=== PATIENT | female | born 1945 | race Caucasian/White ===

== ENCOUNTER → 2018-12-15 12:34 | Outpatient (CLI) | payer OTHER, SELFPAY ==
--- NOTE | 2018-12-15 | DI.MRI.S_ITS ---
PROCEDURE: MR CERVICAL SPINE WO/W CON INDICATIONS: Spinal stenosis. Multiple sclerosis. INNER SPINE (CANAL) TECHNIQUE: Noncontrast sagittal T1 spin echo and T2 fast spin echo, sagittal STIR, sagittal PD fast spin echo, foraminal oblique sagittal T2 fast spin echo, axial gradient echo or T2 fast spin echo through the cervical spine. After the administration of contrast, sagittal and axial T1 spin echo with fat saturation through the cervical spine. COMPARISON: [facility], MR, MR LUMBAR SPINE WO/W CON, 12/15/2018, 12:43. [facility], MR, MR THORACIC SPINE WO/W CON, 12/15/2018, 12:43. [facility], MR, C-SPINE W&WO CONTRAST, 12/22/2013, 13:29. FINDINGS: Image quality: Diagnostic, with note made of motion artifact. Alignment and curvature: There is normal bony alignment. Marrow: Marrow demonstrates normal overall signal. Spinal cord: Visualized spinal cord is normal in size, without white matter lesions. No suspicious intramedullary enhancement. No cerebellar tonsillar herniation. Paraspinous soft tissues: No paravertebral masses or suspicious enhancement. C2-C3: No significant abnormality is seen. C3-C4: The disc height is well-preserved. Loss of disc signal is seen at this level. A mild degree of generalized disc osteophyte complex is seen. There is moderate to prominent right-sided and moderate left-sided facet hypertrophy seen. There is mild to moderate right-sided and no significant left-sided neural foraminal narrowing seen. No significant central canal narrowing is seen. When comparison is made with the prior examination, these findings are similar. C4-C5: Mild to moderate loss of disc height and disc signal are seen. Moderate generalized disc osteophyte complex is seen. Moderate facet joint hypertrophy is seen. Moderate facet joint hypertrophy is seen. Moderate bilateral neural foraminal narrowing is seen. Moderate central canal narrowing is seen, with mass effect upon the ventral spinal cord. No significant change from the prior. C5-C6: Moderate loss of disc height is seen. Loss of disc signal is seen. Moderate disc osteophyte complex is seen, with a central disc osteophyte protrusion. Moderate to severe bilateral neural foraminal narrowing is seen. Moderate central canal narrowing is seen, with mass effect upon the ventral spinal cord. C6-C7: Moderate loss of disc height is seen. Loss of disc signal is seen. Moderate generalized disc osteophyte complex is seen. There is a superimposed central disc osteophyte protrusion seen. There is moderate to severe left-sided and moderate right-sided neural foraminal narrowing seen. Moderate central canal narrowing is seen, with associated mass effect upon the ventral spinal cord. When comparison is made with the prior examination, these findings are similar. C7-T1: Mild loss of disc height is seen. Loss of disc signal is seen. A mild degree of generalized disc osteophyte complex is seen. No significant neural foraminal or central canal narrowing can be seen. When comparison is made with the prior examination, these findings are similar. IMPRESSION: No suspicious white matter lesions are seen to suggest multiple sclerosis. No abnormal enhancement can be seen. Multiple levels of degenerative change are seen, which are similar to 2014. Dictated by: Otis Rose M.D. on 12/15/2018 at 14:43 Approved by: Otis Rose M.D. on 12/15/2018 at 14:51
--- NOTE | 2018-12-15 | DI.MRI.S_ITS ---
PROCEDURE: MR LUMBAR SPINE WO/W CON INDICATIONS: Spinal stenosis. Multiple sclerosis. INNER SPINE (CANAL) TECHNIQUE: Noncontrast sagittal T1 spin echo and T2 fast spin echo, sagittal STIR, axial T1 and T2 fast spin echo through the lumbar spine. In cases with scoliosis, additional coronal T2 fast spin echo may be performed. After the administration of contrast, sagittal and axial T1 spin echo with fat saturation through the lumbar spine. COMPARISON: [facility], MR, L-SPINE W&WO CONTRAST, 12/22/2013, 14:10. [facility], MR, MR THORACIC SPINE WO/W CON, 12/15/2018, 12:43. [facility], MR, MR CERVICAL SPINE WO/W CON, 12/15/2018, 12:43. FINDINGS: Image quality: Excellent. Alignment and curvature: Mild dextroconvex scoliotic curvature is seen. Marrow: Marrow is of normal overall signal. No acute vertebral body compression fractures. No suspicious marrow enhancement. Spinal cord: Conus medullaris terminates at the L1 level. Visualized spinal cord demonstrates normal signal, without suspicious enhancement. Paraspinous soft tissues: No paravertebral masses or abnormal enhancement. T12-L1: Normal appearance. L1-L2: Moderate to severe loss of disc height and disc signal are seen. Reactive marrow endplate changes are seen, which demonstrate mixed T1 weighted and T2-weighted signal, and are attributed to a combination of edema and fatty metaplasia (Modic type I and Modic type II changes). Mild endplate enhancement is seen, which is attributed to degenerative change. Moderate generalized disc bulge is seen. There is moderate left-sided and no right-sided neural foraminal narrowing seen. No significant central canal narrowing is seen. Compared to 2013, these degenerative changes have progressed. L2-L3: Mild to moderate loss of disc height and disc signal are seen. Zndy-dk-rvioustx disc bulge is seen. Yjey-cj-bwjngbri facet hypertrophy is seen. There is moderate left-sided and no right-sided neural foraminal narrowing seen. Mild central canal narrowing is seen. These imaging findings have progressed compared to the prior study. L3-L4: Moderate to severe loss of disc height is seen on the left side. Reactive marrow endplate changes are seen which are hypointense on T1-weighted imaging and hyperintense on T2 weighted imaging, which is most consistent with edema (Modic type I changes). Endplate enhancement is also seen, which is attributed to the degenerative changes. Moderate generalized disc bulge is seen. Gnwt-py-fwolpwjg facet hypertrophy is seen. There is moderate left-sided and mild right-sided neural foraminal narrowing seen. Moderate central canal narrowing is seen. These imaging findings have progressed compared to the prior study. L4-L5: Moderate to severe loss of disc height and disc signal are seen. Moderate generalized disc bulge is seen. Pbjm-ih-rdcjrjlj facet hypertrophy is seen. There is moderate left-sided and no right-sided neural foraminal narrowing seen. Mild central canal narrowing is seen. When comparison is made with the prior examination, these findings are similar. L5-S1: Mild to moderate disc bulge is seen. Edfm-cb-pbpvfkaf facet hypertrophy is seen. There is mild to moderate right-sided and no left-sided neural foraminal narrowing seen. No significant central canal narrowing is seen. When comparison is made with the prior examination, these findings are similar. Incidental note is made of a presumed perineural cyst (Tarlov's cyst) at the S2 level. IMPRESSION: Lumbar spine dextroconvex scoliosis and multiple levels of degenerative change are seen. The degenerative changes are overall progressed compared to 2014. No abnormal enhancement can be seen. Dictated by: Otis Rose M.D. on 12/15/2018 at 13:56 Approved by: Otis Rose M.D. on 12/15/2018 at 14:03
--- NOTE | 2018-12-15 14:19 | DI.MRI.S_ITS ---
PROCEDURE: MR THORACIC SPINE WO/W CON INDICATIONS: INNER SPINE (CANAL) TECHNIQUE: Noncontrast sagittal T1 spin echo and T2 fast spin echo, sagittal STIR, axial T1 and T2 fast spin echo through the thoracic spine. After the administration of contrast, axial and sagittal T1 spin echo with fat saturation through the thoracic spine. COMPARISON: [facility], MR, T-SPINE W&WO CONTRAST, 12/22/2013, 13:51. FINDINGS: Image quality: Excellent. Alignment and curvature: Levoconvex scoliotic curvature of the thoracolumbar spine is again noted. Marrow: Marrow is of normal overall signal. Schmorl's nodes are noted along the inferior endplate of L1 and superior endplate of L2 with mild associated reactive change. Reactive endplate changes are noted at L2-3 and L3-4 as well as minimal changes at L5 6 and L6 7. No acute vertebral body compression fractures. There is trace retrolisthesis of L1 on L2. Spinal cord: Visualized spinal cord is of normal signal and size, without abnormal enhancement. Paraspinous soft tissues: No paravertebral masses or abnormal enhancement. Miscellaneous: Central canal and foramina appear widely patent at all scanned levels of the thoracic spine. Spinal stenosis secondary to disc bulge as well as facet/ligamentum flavum arthropathy is present at L2-3. Multilevel disc desiccation is present. Minimal disc bulge is present at T6-7, T8-9, T9-10, T10-11, mild bulge including extension into the left lateral recess and foramina at L2-3. IMPRESSION: 1. Multilevel disc desiccation and disc bulges as above. Dictated by: Amelie Mayen M.D. on 12/15/2018 at 15:12 Approved by: Amelie Mayen M.D. on 12/15/2018 at 15:53
== END ==
PROVIDERS: Family Provider Family Medicine; PCP Family Medicine; Visit Provider Family Medicine
DX: M48.02 Spinal stenosis, cervical region (principal); M48.061 Spinal stenosis, lumbar region without neurogenic claudication; G35 Multiple sclerosis; M41.86 Other forms of scoliosis, lumbar region; M47.816 Spondylosis without myelopathy or radiculopathy, lumbar region; M47.817 Spondylosis without myelopathy or radiculopathy, lumbosacral region; M47.812 Spondylosis without myelopathy or radiculopathy, cervical region; M51.24 Other intervertebral disc displacement, thoracic region
CPT/HCPCS: 72156; 72157; 72158; A9579

== ENCOUNTER → 2021-01-09 08:28 | Outpatient (CLI) | payer MEDICARE, OTHER, SELFPAY ==
[2021-01-09 20:52] LABS: Add Manual Diff / Slide Review NO; Basophils Absolute Auto 0 /uL (0-100); Basophils Percent Auto 0.8 % (0-2); Eosinophils Absolute Auto 100 /uL (0-450); Eosinophils Percent Auto 2.2 % (2-4); Hematocrit 40.7 % (36-46); Hemoglobin 13.5 g/dL (12.0-16.0); Lymphocytes Absolute Auto 1400 /uL (1100-4500); Lymphocytes Percent Auto 25.4 % (25-40); Mean Corpuscular HGB Conc 33.1 % (30-36); Mean Corpuscular Volume 84.5 fL (80-100); Monocytes Absolute Auto 400 /uL (0-900); Monocytes Percent Auto 7.7 % (3-14); Neutrophils Absolute Auto 3600 /uL (1500-7000); Neutrophils Percent Auto 63.9 % (50-75); Platelet Count 238 X10^3/uL (150-400); Red Blood Cell Count 4.82 X10^6/uL (4.0-5.2); Red Cell Distribution Width 13.9 % (11.6-14.8); White Blood Cell Count 5.6 X10^3/uL (4.5-11.0)
[2021-01-09 21:14] LABS: Alanine Aminotransferase 20 IU/L (<35); Albumin 4.1 g/dL (3.5-5.0); Albumin Globulin Ratio 1.8 (1.0-2.8); Alkaline Phosphatase 74 U/L (38-126); Aspartate Aminotransferase 34 IU/L (14-36); Bilirubin Total 0.5 mg/dL (0.2-1.3); Blood Urea Nitrogen 12 mg/dL (7-17); Calcium 9.5 mg/dL (8.4-10.2); Carbon Dioxide 29 mmol/L (22-32); Chloride 106 mmol/L (98-107); Cholesterol 204 mg/dL (140-199); Estimated Glomerular Filt Rate > 60.0 mL/min (>60); Globulin 2.3 g/dL (1.7-4.1); Glucose 92 mg/dL (80-110); HDL Cholesterol 56 mg/dL (40-60); HEMOLYSIS < 15 (0-50); LDL Cholesterol Calculated 134 mg/dL (<100); Potassium 4.1 mmol/L (3.4-5.1); Sodium 141 mmol/L (137-145); Total Protein 6.4 g/dL (6.3-8.2); Triglycerides 70 mg/dL (35-150)
[2021-01-09 21:21] LABS: Vitamin D 25 Hydroxy (D3) 67.8 ng/mL (30.0-100.0)
[2021-01-09 21:46] LABS: TSH w/ Reflex to FT4 1.51 uIU/mL (0.47-4.68)
== END ==
PROVIDERS: Family Provider Family Medicine; PCP Family Medicine; Referring Provider Family Medicine; Visit Provider Family Medicine
DX: E03.9 Hypothyroidism, unspecified (principal); G35 Multiple sclerosis; E78.5 Hyperlipidemia, unspecified; E55.9 Vitamin D deficiency, unspecified
CPT/HCPCS: 80053; 80061; 82306; 84443; 85025

== ENCOUNTER → 2021-01-30 12:00 | Outpatient (CLI) | payer MEDICARE, OTHER, SELFPAY | PROVIDERS: Family Provider Family Medicine; PCP Family Medicine; Referring Provider Family Medicine; Visit Provider Family Medicine | DX: E88.9 Metabolic disorder, unspecified; M90.80 Osteopathy in diseases classified elsewhere, unspecified site; M85.80 Other specified disorders of bone density and structure, unspecified site; Z78.0 Asymptomatic menopausal state | CPT/HCPCS: 77080 ==

== ENCOUNTER → 2021-05-30 08:33 | Outpatient (CLI) | payer MEDICARE, OTHER, SELFPAY ==
[2021-05-30 21:02] LABS: Cholesterol 164 mg/dL (140-199); HDL Cholesterol 54 mg/dL (40-60); LDL Cholesterol Calculated 95 mg/dL (<100); Triglycerides 75 mg/dL (35-150)
[2021-05-30 21:21] LABS: Vitamin D 25 Hydroxy (D3) 56.6 ng/mL (30.0-100.0)
== END ==
PROVIDERS: Family Provider Family Medicine; PCP Family Medicine; Visit Provider Family Medicine
DX: E03.9 Hypothyroidism, unspecified (principal); E78.5 Hyperlipidemia, unspecified; E55.9 Vitamin D deficiency, unspecified
CPT/HCPCS: 80061; 82306; 84443

== ENCOUNTER → 2021-12-10 08:46 | Outpatient (CLI) | payer MEDICARE, OTHER, SELFPAY ==
[2021-12-10 19:39] LABS: Vitamin D 25 Hydroxy (D3) 74.9 ng/mL (30.0-100.0)
[2021-12-10 19:50] LABS: BUN Creatinine Ratio 19.2 (6-22); Blood Urea Nitrogen 15 mg/dL (7-17); Calcium 9.5 mg/dL (8.4-10.2); Carbon Dioxide 31 mmol/L (22-32); Chloride 103 mmol/L (98-107); Cholesterol 186 mg/dL (140-199); Estimated Glomerular Filt Rate > 60 mL/min (>60); Glucose 91 mg/dL (80-110); HDL Cholesterol 61 mg/dL (40-60); HEMOLYSIS < 15 (0-50); LDL Cholesterol Calculated 101 mg/dL (<100); Potassium 4.3 mmol/L (3.4-5.1); Sodium 139 mmol/L (137-145); TSH w/ Reflex to FT4 1.98 uIU/mL (0.47-4.68); Triglycerides 122 mg/dL (35-150)
== END ==
PROVIDERS: Family Provider Family Medicine; PCP Family Medicine; Visit Provider Family Medicine
DX: E03.9 Hypothyroidism, unspecified (principal); M85.80 Other specified disorders of bone density and structure, unspecified site; E55.9 Vitamin D deficiency, unspecified; E78.2 Mixed hyperlipidemia; F41.8 Other specified anxiety disorders
CPT/HCPCS: 80048; 80061; 82306; 84443

== ENCOUNTER → 2023-01-01 08:50 | Outpatient (CLI) | payer MEDICARE, OTHER, SELFPAY ==
[2023-01-01 19:49] LABS: Add Manual Diff / Slide Review NO; Basophils Absolute Auto 100 /uL (0-100); Basophils Percent Auto 1.2 % (0-2); Eosinophils Absolute Auto 300 /uL (0-450); Eosinophils Percent Auto 5.5 % (2-4); Hemoglobin 13.6 g/dL (12.0-16.0); Lymphocytes Absolute Auto 1500 /uL (1100-4500); Lymphocytes Percent Auto 28.8 % (25-40); Mean Corpuscular HGB Conc 34.8 % (30-36); Mean Corpuscular Volume 83.2 fL (80-100); Monocytes Absolute Auto 400 /uL (0-900); Monocytes Percent Auto 8.2 % (3-14); Neutrophils Absolute Auto 3000 /uL (1500-7000); Neutrophils Percent Auto 56.3 % (50-75); Platelet Count 239 X10^3/uL (150-400); Red Blood Cell Count 4.69 X10^6/uL (4.0-5.2); Red Cell Distribution Width 13.4 % (11.6-14.8); White Blood Cell Count 5.3 X10^3/uL (4.5-11.0)
[2023-01-01 19:57] LABS: Alanine Aminotransferase 30 IU/L (<35); Albumin 4.1 g/dL (3.5-5.0); Albumin Globulin Ratio 1.6 (1.0-2.8); Alkaline Phosphatase 67 U/L (38-126); Aspartate Aminotransferase 65 IU/L (14-36); BUN Creatinine Ratio 17.3 (6-22); Bilirubin Total 0.6 mg/dL (0.2-1.3); Blood Urea Nitrogen 13 mg/dL (7-17); Calcium 8.9 mg/dL (8.4-10.2); Carbon Dioxide 31 mmol/L (22-32); Chloride 103 mmol/L (98-107); Cholesterol 189 mg/dL (140-199); Estimated Glomerular Filt Rate > 60 mL/min (>60); Globulin 2.6 g/dL (1.7-4.1); Glucose 92 mg/dL (80-110); HDL Cholesterol 59 mg/dL (40-60); HEMOLYSIS < 15 (0-50); LDL Cholesterol Calculated 116 mg/dL (<100); Potassium 4.1 mmol/L (3.4-5.1); Sodium 140 mmol/L (137-145); Total Protein 6.7 g/dL (6.3-8.2); Triglycerides 69 mg/dL (35-150)
[2023-01-01 20:31] LABS: TSH w/ Reflex to FT4 1.34 uIU/mL (0.47-4.68)
[2023-01-01 20:43] LABS: Vitamin B12 797 pg/mL (239-931)
[2023-01-02 21:07] LABS: x Labcorp Estim. Avg Glu (eAG) 114 mg/dL (.); x Labcorp Hemoglobin A1c 5.6 % (4.8-5.6)
== END ==
PROVIDERS: Family Provider Family Medicine; PCP Physician Assistant; Visit Provider Physician Assistant
DX: H93.8X9 Other specified disorders of ear, unspecified ear; G62.9 Polyneuropathy, unspecified; Z79.899 Other long term (current) drug therapy
CPT/HCPCS: 80053; 80061; 82607; 83036; 84443; 85025

== ENCOUNTER → 2023-03-10 09:09 | Outpatient (CLI) | payer MEDICARE, OTHER, SELFPAY ==
--- NOTE | 2023-03-10 09:10 | DI.US.S_ITS ---
PROCEDURE: US PERIPH VENOUS LOW EXTREM LT INDICATIONS: LEFT CALF/POSTERIOR KNEE PAIN/SWELLING. R/O DVT/ONTIVEROS CYST TECHNIQUE: Real-time imaging, as well as color and pulse Doppler interrogation, were performed of the lower extremity deep veins from the inguinal ligament to the popliteal fossa, with documentation of the visualized calf veins. COMPARISON: None. FINDINGS: The common femoral, femoral, popliteal, and the visualized calf veins are normally compressible, and free of intraluminal thrombus. Color and pulse Doppler demonstrate normal phasic intraluminal flow. There is normal augmentation response to distal compression maneuver. Cyst associated with the anterior lateral joint space measures 3.3 x 2.1 x 0.6 cm IMPRESSION: No evidence of deep venous thrombosis, left lower extremity. Soft tissue fluid associated with the joint, probable joint effusion Approved by: Lucas Mars M.D. on 03/10/2023 at 9:26
== END ==
PROVIDERS: Family Provider Family Medicine; PCP Physician Assistant; Referring Provider Family Medicine; Visit Provider Family Medicine
DX: M25.562 Pain in left knee (principal); M79.89 Other specified soft tissue disorders; M25.462 Effusion, left knee
CPT/HCPCS: 93971

== ENCOUNTER → 2023-06-30 10:41 | Outpatient (CLI) | payer MEDICARE, OTHER, SELFPAY ==
--- NOTE | 2023-06-30 10:43 | DI.MRI.S_ITS ---
PROCEDURE: MR LUMBAR SPINE WO CON INDICATIONS: lumbar radiculopathy TECHNIQUE: Noncontrast sagittal T1 spin echo and T2 fast echo, sagittal STIR, and T2 fast spin echo through the lumbar spine. In cases with scoliosis, additional coronal T2 fast spin echo may be performed. COMPARISON: [facility], MR, MR LUMBAR SPINE WO/W CON, 12/15/2018, 12:43. FINDINGS: Image quality: Excellent. Alignment and Curvature: Mild dextrocurvature centered at L2-L3. Trace retrolisthesis of L1 on L2, L2 on L3, and L3 on L4. Bone Marrow: Marrow is of normal overall signal. No acute vertebral body compression fractures. Spinal Cord: Conus medullaris terminates at the L1 level. Visualized cord demonstrates normal signal and size. Paraspinous Soft Tissues: No paravertebral masses. T12-L1: No canal stenosis or foraminal stenosis. L1-L2: No significant interval change. Severe chronic disc height loss. Posterior disc bulge. Facet and ligament hypertrophy. No significant canal stenosis or significant foraminal stenosis. There is a right foraminal disc bulge which is not impinge on the exiting right L1 nerve root. L2-L3: Slight interval progression. Mild disc bulge. Facet and ligament hypertrophy. Mild canal stenosis. No significant right foraminal narrowing. No significant right foraminal narrowing. Mild to moderate left foraminal narrowing. L3-L4: Severe chronic disc height loss. Disc bulge. Facet and ligament hypertrophy. Moderate canal stenosis is stable. No significant right foraminal narrowing. Mild progression of left foraminal narrowing, now moderate, with minimal flattening deformity on the exiting left L3 nerve root. L4-L5: Severe chronic disc height loss. Prominent bilateral facet hypertrophy. No significant canal stenosis. Mild bilateral foraminal stenosis. L5-S1: Disc bulge. Prominent facet hypertrophy. No canal stenosis. Moderate right foraminal stenosis with mild flattening deformity on the exiting right L5 nerve root. IMPRESSION: 1. There is underlying multilevel facet arthropathy. There is also mild dextrocurvature. 2. Slight interval progression at L2-L3. 3. Canal stenosis is mild at L2-L3 and moderate at L3-L4. 4. Multilevel foraminal narrowing as described above. Findings include moderate left foraminal narrowing at L3-L4 and moderate right foraminal narrowing at L5-S1. Dictated by: Daren Lyons M.D. on 06/30/2023 at 15:01 Approved by: Daren Lyons M.D. on 06/30/2023 at 15:29
--- NOTE | 2023-06-30 10:43 | DI.MRI.S_ITS ---
PROCEDURE: MR HEAD/BRAIN WO/W CON INDICATIONS: multiple sclerosis TECHNIQUE: Noncontrast axial T1 spin echo, axial T2 fast spin echo, sagittal and axial FLAIR, coronal T2 fast spin echo, axial gradient echo, axial diffusion and ADC through the brain. After the administration of contrast, axial and coronal and sagittal T1 spin echo with fat saturation through the brain. COMPARISON: [facility], MR, MR BRAIN WITH/WITHOUT CONTRAST, 10/15/2020, 10:44. [facility], MR, BRAIN W&WO CONTRAST, 12/22/2013, 13:04. [facility], MR, MR LUMBAR SPINE WO CON, 06/30/2023, 12:37. FINDINGS: Image quality: Excellent. CSF spaces: Basal cisterns are patent. No extra-axial fluid collections. Ventricles are normal in size and shape. Brain: Numerous foci of abnormal T2 weighted hyperintensity can be seen within the periventricular deep white matter. Several peripheral lesions are also seen. There is a broad area of peripheral T2 weighted hyperintensity seen involving the posterior aspect of the left frontal lobe superiorly, as on series 7, image 33, which appears stable compared to the prior examination. There is mild involvement of the corpus callosum. A few faintly seen lesions can be seen within the yong, left worse than right. No definite cerebellar lesions are seen. These lesions do not enhance. When compared to the 2020 examination, the burden of white matter lesions does not appear progressed. No midline shift. No intracranial bleeds or masses. No abnormal intracranial enhancement. There is age-appropriate brain parenchymal volume loss. The brainstem appears normal. Diffusion-weighted images demonstrate no acute ischemic insults. No chronic ischemic insults. Normal intravascular flow voids are present. Skull and face: Calvarial marrow is normal in signal. Orbits appear normal. Sinuses: Mild mucosal thickening can be seen within the sphenoid sinuses, with milder mucosal thickening seen elsewhere within the paranasal sinuses. No abnormal fluid is seen within the mastoid air cells. IMPRESSION: Stable white matter lesions are seen, which are consistent with the given clinical history of multiple sclerosis. No definite progression can be seen compared to the prior. No abnormal enhancement is seen. No findings of acute or subacute infarction can be seen. No prior territorial infarct can be seen. No prior territorial infarct can be seen. Dictated by: Otis Rose M.D. on 06/30/2023 at 13:14 Approved by: Otis Rose M.D. on 06/30/2023 at 13:18
--- NOTE | 2023-06-30 10:43 | DI.MRI.S_ITS ---
PROCEDURE: MR KNEE LT WO CON INDICATIONS: LEFT KNEE INJURY -- from fall 5 weeks ago. worsen swelling pain TECHNIQUE: Noncontrast sagittal PD fast spin echo and T2 fast spin echo with fat saturation, sagittal 3-D FLASH with fat saturation; coronal T1 spin echo and PD fast spin echo with fat saturation, and axial PD fast spin echo with fat saturation through the knee. COMPARISON: [facility] CR, XR KNEE LT 3V, 03/09/2023, 10:52. FINDINGS: Image quality: Excellent. Menisci: There is medial and lateral meniscal extrusions. There is complex degenerative tear involving the body and posterior horn of the medial meniscus. Degenerative tear is also seen involving the free edge of the body of the lateral meniscus. The meniscal root ligaments appear intact. Cruciate ligaments: The anterior and posterior cruciate ligaments appear intact. Note is made of ligament of Wrisberg. Medial structures: The medial collateral ligament appears intact. The semimembranosus tendon insertions and meniscocapsular junction appear intact. Visualized portions of the pes anserinus tendons appear normal. No abnormal bursal fluid. Lateral structures: The lateral collateral ligament, long and short heads of the biceps femoris tendon appear intact. The popliteus tendon appears normal. Iliotibial band appears normal. Anterior structures: The quadriceps and patellar tendons appear intact. Patellar alignment is normal. No femoral trochlear dysplasia or ventral trochlear prominence. No edema in the infrapatellar fat pad. Bones and cartilage: No bone marrow contusions or fractures. There is moderate tricompartmental cartilage thinning and fibrillation. Joint space: There is moderate knee joint effusion. A moderate sized Meng's cyst is present. Normal appearing synovial plicae are incidentally noted. IMPRESSION: 1. Medial and lateral meniscal extrusion and degenerative tears of the medial and lateral menisci. 2. Moderate osteoarthritic changes with loss of articular cartilage. 3. Moderate knee joint effusion. 4. A moderate-sized Meng's cyst. Dictated by: Sarmad Gonzalez M.D. on 06/30/2023 at 13:36 Approved by: Sarmad Gonzalez M.D. on 06/30/2023 at 13:48
== END ==
PROVIDERS: Family Provider Family Medicine; PCP Family Medicine; Referring Provider Family Medicine; Visit Provider Family Medicine
DX: M23.222 Derangement of posterior horn of medial meniscus due to old tear or injury, left knee (principal); G35 Multiple sclerosis; M23.262 Derangement of other lateral meniscus due to old tear or injury, left knee; M71.22 Synovial cyst of popliteal space [Baker], left knee; M25.462 Effusion, left knee; M47.816 Spondylosis without myelopathy or radiculopathy, lumbar region; M47.817 Spondylosis without myelopathy or radiculopathy, lumbosacral region; M48.061 Spinal stenosis, lumbar region without neurogenic claudication; M48.07 Spinal stenosis, lumbosacral region; M54.50 Low back pain, unspecified; R29.898 Other symptoms and signs involving the musculoskeletal system; M25.562 Pain in left knee; S89.90XA Unspecified injury of unspecified lower leg, initial encounter; W10.2XXS Fall (on)(from) incline, sequela
CPT/HCPCS: 70553; 72148; 73721; A9579

== ENCOUNTER 2023-09-15 10:32 | Day surgery (SDC) | payer MEDICARE, OTHER, SELFPAY ==
--- NOTE | 2023-09-15 | PATH_ITS ---
[facility] Accession Number: [id number] No. of containers..02 Tissue . 01 Material submitted: . PART A: colon - ASCENDING POLYP PART B: colon - ASCENDING COLON POLYP . 01 Diagnosis: A. ASCENDING COLON POLYP: Tubular adenoma. . B. ASCENDING COLON POLYP: Tubular adenoma. [facility] 09/22/2023 1159 Local . 01 Electronically signed: . Dmitriy Matta MD, PhD, Pathologist NPI- [id number] . 01 Gross description: . Part A: ASCENDING POLYP: Received in formalin are 2 fragment(s) of reinoso, soft tissue measuring 0.1 x 0.1 x 0.1 cm to 0.3 x 0.2 x 0.2 cm submitted entirely in 1 cassette(s) Part B: ASCENDING COLON POLYP: Received in formalin is 1 fragment(s) of reinoso, soft tissue measuring 0.8 x 0.4 x 0.4 cm submitted entirely in 1 cassette(s) /HOLLY 09/17/2023 1725 Local . 01 Pathologist provided ICD-10: D12.2 . 01 CPT . 346246, [id number] Specimen Comment: A courtesy copy of this report has been sent to [phone] Performed at: 01 [facility] [address] [place] [address], [place], [place] [id number] MD Candido Lopez MD Phone: [phone]
[2023-09-15 10:46] VITALS: BP 115/67; PULSE 62; RESP 16; TEMP 36.3; O2SAT 98
[2023-09-15] MEDS: LACTATED RINGERS 1,000 ML 42 ML IV (10:54)
[2023-09-15 11:11] VITALS: BP 124/82; PULSE 66; RESP 17; TEMP 36.6; O2SAT 96
--- NOTE | 2023-09-15 11:12 | P.HP_ITS ---
History of Present Illness History of Present Illness Date Patient Seen: 09/15/23 Time Patient Seen: 11:12 Chief complaint: Colonoscopy Narrative: 70-year-old woman here for screening colonoscopy. Personal history of colonic polyps. Her mother developed colon cancer in her late 80s. No abdominal concerns today. [facility] Medical History GERD (gastroesophageal reflux disease) Sleep apnea Neuropathy Situational anxiety History of pneumonia Hyperlipidemia, mixed Osteopenia Vitamin D deficiency Cervical stenosis of spine Lumbar back pain Hypothyroidism Episodic paroxysmal hemicrania, intractable Asthma Multiple sclerosis (10/04/14) Screening for lipid disorders Screening for colorectal cancer Screening for breast cancer Skin cancer screening Colon cancer screening Surgical History Status post surgery (04/14/11) Social History Smoking Status: Former smoker alcohol intake: current additional social history: [place] mammogram 2 D [place] 03/2022 discussed 3D mammogram -- pt would like to do next year no fhx of breast cancer colonoscopy: before 2016. thinks she is due mom with colon cancer at 80 yo. and at 89 yo 04/2023 Meds Home Medications and Allergies Home Medications Medication Instructions Recorded Confirmed Type FOLIC ACID/VIT A/VIT B1/VIT 1 tab PO ##0 04/14/11 07/16/23 History (#MULTIVITAMIN) [brewers yeast] ##0 10/31/17 07/16/23 History coenzyme Q10 100 mg capsule (Co ##0 10/31/17 07/16/23 History Q-10) omega 3-ekl-nbb-fish oil 1,000 mg 1,000 mg PO ##0 10/31/17 07/16/23 History (120 mg-180 mg) capsule (Fish Oil) propranolol 40 mg tablet 20 mg (1/2 x 40 mg) PO BID PRN 01/16/21 09/15/23 Rx Stage fright #10 tabs ezetimibe 10 mg tablet (Zetia) 10 mg PO DAILY #90 tabs 12/02/22 07/16/23 Rx levothyroxine 88 mcg tablet 88 mcg PO DAILY #90 tabs 01/08/23 07/16/23 Rx (Euthyrox) sodium,potassium,mag sulfates 17.5 See Rx Instructions PO .COMPLEX 04/24/23 07/16/23 Rx gram-3.13 gram-1.6 gram oral soln #354 mL (Suprep Bowel Prep Kit) pharmacy compounding accessory See Rx Instructions .Route 07/20/23 Rx .COMPLEX #90 days Allergies Allergy/AdvReac Type Severity Reaction Status Date / Time simvastatin AdvReac Intermediate Cramping Verified 09/15/23 11:11 of the Muscles Exam Vital Signs (past 8 hours): - 09/15/23 10:46 Temperature 97.3 F L Pulse Rate 62 Respiratory Rate 16 Blood Pressure 115/67 Pulse Oximetry 98 Oxygen Delivery Method Room Air Oxygen Delivery Method Room Air Narrative Exam Narrative: General adult woman alert oriented no acute distress Chest nonlabored respiration Extremities warm well perfused Assessment & Plan Assessment & Plan narrative: The patient requires colorectal screening and colonoscopy is recommended. Technical details were discussed. Risks, benefits, alternatives explained. Risks including but not limited to myocardial infarction, aspiration, bleeding, pain, missed lesion, incomplete examination, need for further radiographic studies, colonic perforation, and need for major abdominal surgery were disc ussed. All questions were answered to their satisfaction, and they are in agreement with this plan.
--- NOTE | 2023-09-15 11:48 | P.OP.COLON_ITS ---
Operative Date/Time/Diagnoses Date of procedure: 09/15/23 Time of procedure: 11:48 Pre-op diagnosis: Family history of colon cancer Procedure & Clinicians Study performed: Colonoscopy and polypectomy Same procedure as scheduled: Yes Indications: Colorectal screening Family history of colon cancer Surgeon: Tate Saxena Procedure Notes Procedure in detail: The history and physical was performed/updated and the patient is ASA class is 2. The procedure was discussed in detail with the patient. Potential risks complications including infection, bleeding, missed diagnosis, perforation, need for surgery, and were explained. Their questions were answered and informed consent was obtained. Patient was brought to the procedure room and placed standard monitoring equipment. The patient's vital signs were monitored continuously throughout the entire procedure. Prior to starting time-out was performed. The patient was placed in the left lateral recumbent position. Procedural sedation was administered by anesthesia. Examination began with a thorough inspection of the perianal area there was no evidence of fissures, fistulae, external hemorrhoids or cutaneous malignancy. The colonoscopy scope was then placed into the anal canal and was advanced to the cecum, which was identified by the ileocecal valve, the appendiceal orifice and the confluence of the taenia. The scope was then slowly withdrawn examining colon thoroughly in all directions, irrigating it of any residual stool. The scope was retroflexed within the rectum The patient tolerated the procedure well. They will be discharged once criteria are met. The prep was of good/excellent quality. The withdrawl time was 10 minutes. FINDINGS * Ascending colon. 3 mm polyp removed with biopsy forceps. 8 mm polyp removed with cold snare * Internal hemorrhoids Specimen(s): other (Ascending colonic polyps x2) Impression: Colonic polyps x2 Post-procedure Plan for aftercare: Follow-up is dependent on pathology findings Disposition: same day surgery
[2023-09-15 11:50] VITALS: BP 104/65; PULSE 60; RESP 21; TEMP 36.3; O2SAT 95
[2023-09-15 11:54] VITALS: BP 105/66; PULSE 57; RESP 13; O2SAT 97
[2023-09-15 11:59] VITALS: BP 111/66; PULSE 52; RESP 14; TEMP 36.2; O2SAT 98
== END 2023-09-15 12:15 | disposition home or self-care (01) ==
PROVIDERS: Family Provider Family Medicine; PCP Family Medicine; Referring Provider Surgery; Visit Provider Surgery
PROC: 0DJD8ZZ Inspection of Lower Intestinal Tract, Via Natural or Artificial Opening Endoscopic (ICD-10-PCS; CPT 45378; principal; 2023-09-15 11:30)
DX: Z12.11 Encounter for screening for malignant neoplasm of colon (principal); Z80.0 Family history of malignant neoplasm of digestive organs; K64.8 Other hemorrhoids; D12.2 Benign neoplasm of ascending colon
CPT/HCPCS: 45385; 45380; J2704

== ENCOUNTER → 2023-12-31 09:20 | Outpatient (CLI) | payer MEDICARE, OTHER, SELFPAY ==
[2023-12-31 19:52] LABS: Add Manual Diff / Slide Review NO; Basophils Absolute Auto 100 /uL (0-100); Basophils Percent Auto 1.1 % (0-2); Eosinophils Absolute Auto 200 /uL (0-450); Eosinophils Percent Auto 4.3 % (2-4); Hematocrit 39.8 % (36-46); Hemoglobin 13.6 g/dL (12.0-16.0); Lymphocytes Absolute Auto 1500 /uL (1100-4500); Lymphocytes Percent Auto 26.7 % (25-40); Mean Corpuscular HGB Conc 34.2 % (30-36); Mean Corpuscular Volume 84.7 fL (80-100); Monocytes Absolute Auto 500 /uL (0-900); Monocytes Percent Auto 8.8 % (3-14); Neutrophils Absolute Auto 3300 /uL (1500-7000); Neutrophils Percent Auto 59.1 % (50-75); Platelet Count 240 X10^3/uL (150-400); Red Cell Distribution Width 13.2 % (11.6-14.8); White Blood Cell Count 5.6 X10^3/uL (4.5-11.0)
[2023-12-31 19:58] LABS: Alanine Aminotransferase 26 IU/L (<35); Albumin 4.3 g/dL (3.5-5.0); Albumin Globulin Ratio 1.9 (1.0-2.8); Alkaline Phosphatase 73 U/L (38-126); Aspartate Aminotransferase 43 IU/L (14-36); BUN Creatinine Ratio 18.8 (6-22); Bilirubin Total 0.7 mg/dL (0.2-1.3); Blood Urea Nitrogen 15 mg/dL (7-17); Calcium 9.3 mg/dL (8.4-10.2); Carbon Dioxide 29 mmol/L (22-32); Chloride 107 mmol/L (98-107); Cholesterol 207 mg/dL (140-199); Estimated Glomerular Filt Rate > 60 mL/min (>60); Globulin 2.3 g/dL (1.7-4.1); Glucose 94 mg/dL (80-110); HDL Cholesterol 71 mg/dL (40-60); HEMOLYSIS 24 (0-50); LDL Cholesterol Calculated 122 mg/dL (<100); Potassium 4.3 mmol/L (3.4-5.1); Sodium 139 mmol/L (137-145); Total Protein 6.6 g/dL (6.3-8.2); Triglycerides 72 mg/dL (35-150)
[2023-12-31 20:12] LABS: Vitamin D 25 Hydroxy (D3) 59.1 ng/mL (30.0-100.0)
[2023-12-31 20:27] LABS: Thyroid Stimulating Hormone 0.926 uIU/mL (0.47-4.68)
[2023-12-31 20:52] LABS: Vitamin B12 845 pg/mL (239-931)
== END ==
PROVIDERS: Family Provider Family Medicine; PCP Family Medicine; Visit Provider Family Medicine
DX: Z13.6 Encounter for screening for cardiovascular disorders (principal); G35 Multiple sclerosis; E03.9 Hypothyroidism, unspecified; E55.9 Vitamin D deficiency, unspecified; Z13.0 Encounter for screening for diseases of the blood and blood-forming organs and certain disorders involving the immune mechanism; Z13.1 Encounter for screening for diabetes mellitus; G62.9 Polyneuropathy, unspecified; G89.29 Other chronic pain; M23.309 Other meniscus derangements, unspecified meniscus, unspecified knee; Z71.3 Dietary counseling and surveillance
CPT/HCPCS: 80053; 80061; 82306; 82607; 84443; 85025

== ENCOUNTER 2024-09-01 09:29 | Emergency (ER) | payer MEDICARE, OTHER, SELFPAY ==
[2024-09-01 09:37] VITALS: BP 131/84; PULSE 70; RESP 14; TEMP 36.2; O2SAT 99; BMI 22.4
--- NOTE | 2024-09-01 11:32 | DI.MRI.S_ITS ---
PROCEDURE: MR OPTIC NRV WWO CON INDICATIONS: orbit protocol, hx MS, optic neuritis, vis disturbance TECHNIQUE: Noncontrast sagittal T1 spin echo, axial FLAIR, axial gradient echo, axial diffusion and ADC acquired through the brain. Coronal STIR, thin-slice axial T1 spin echo through the orbits. After the administration of contrast, thin-slice axial and coronal T1 spin echo with fat saturation through the orbits, axial and coronal and sagittal T1 spin echo with fat saturation through the brain. COMPARISON: [facility], MR, MR BRAIN WITH/WITHOUT CONTRAST, 10/15/2020, 10:44. [facility], MR, MR HEAD/BRAIN WO/W CON, 06/30/2023, 12:58. FINDINGS: Image quality: This examination is limited by involuntary motion artifact. Orbits: In this patient with this given history, scrutiny is given to the optic nerves. The optic nerves demonstrate a normal, symmetric appearance, without the thickening or enhancement. No abnormal fluid can be seen along the optic nerve sheaths. Globes are symmetrical. Note is made of bilateral lens replacements. No retrobulbar masses or fat abnormalities. The extra-ocular muscles are normal and symmetric in appearance. Lacrimal glands are normal. Optic chiasm is normal. Periorbital soft tissues appear normal. CSF spaces: Ventricles are normal in size and shape. Basal cisterns are patent. No extra-axial fluid collections. Brain: Multiple foci of T2 weighted hyperintensity can be seen within the periventricular deep white matter. Several peripheral lesions are also seen. These foci do not enhance. No definite progression compared to the prior. No intracranial bleeds or mass effects. No abnormal intracranial enhancement. Castillo-white matter interface is intact. Diffusion weighted images demonstrate no acute ischemic insults. Pituitary gland appears normal, without sellar or suprasellar masses. Brainstem appears normal. Normal intravascular flow voids are present. Skull and face: Calvarial marrow is normal in signal. Sinuses: Sinuses and mastoids are clear. IMPRESSION: Scrutiny is given to the optic nerves and no abnormal lesions or abnormal enhancement can be seen. Stable nonenhancing T2 hyperintense lesions can be seen within the white matter, which are consistent with the given clinical history of multiple sclerosis. No imaging explanation is found for this patient's presenting symptoms. No findings of acute or subacute infarction can be seen. Dictated by: Otis Rose M.D. on 09/01/2024 at 15:43 Approved by: Otis Rose M.D. on 09/01/2024 at 15:48
--- NOTE | 2024-09-01 12:55 | ED_ITS ---
<Statement entered by Ky Velez DO - 09/03/24 10:49> Dr. Velez: I was immediately available in the department for consultation. I did not actually see the patient. HPI - Eye Problem General Chief complaint: Eye Problems Stated complaint: Sent from PCP to get MRI Time Seen by Provider: 09/01/24 11:39 Mode of arrival: Ambulatory History of Present Illness HPI Narrative: Ms. Yanez is a very pleasant 79-year-old female with a past medical history of relapsing-remitting multiple sclerosis/optic neuritis who presents to the emergency department after being sent by her esthetics instructor Dr. Connor for concern of possible optic neuritis/visual disturbance, specifically right eye blurred vision x7 days. About 3 weeks ago patient was sick with flu-like symptoms and reports having bilateral blurred vision and itchy eyes. She saw her PCP Dr. Chaudhry on 08/26/2024 because her flu-like symptoms resolved but she continued to have bilateral eye irritation. He prescribed her ketorolac ophthalmic drops for blepharitis and viral conjunctivitis however this worsened her symptoms so she stopped taking them. Later that evening she developed worsening vision of the right eye specifically and described it as total white vision of the right eye. She saw her eye doctor Dr. 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 Patient reports today her right eye vision is slowly getting better but it is still not normal and she describes the right eye vision as slightly dimmed and blurred compared to the left. Denies spots specks flashing lights or decreased visual field fullness. States that her eyes do not track together, chronically, and when she looks at the floor the carpet/floor is moving, chronically. She uses prism glasses. She has not been on medications for her MS for multiple years. She wears glasses, no contact lenses. She has a sensation of sand in both of her eyes but this is also improving. Eyelids and whites of eyes are red, improving. She denies headache, fevers, chills, weakness, numbness or tingling, headache, any other symptoms or concerns. Reports that the right eye blurred vision does make her occasionally dizzy but she does not have any problem with her balance and describes herself as very active and athletic. Related Data Home Medications Medication Instructions Recorded Confirmed FOLIC ACID/VIT A/VIT B1/VIT 1 tab PO ##0 04/14/11 08/26/24 (#MULTIVITAMIN) [brewers yeast] ##0 10/31/17 08/26/24 coenzyme Q10 100 mg capsule (Co ##0 10/31/17 08/26/24 Q-10) omega 0-lqo-wyt-fish oil 1,000 mg 1,000 mg PO ##0 10/31/17 08/26/24 (120 mg-180 mg) capsule (Fish Oil) Previous Rx's Medication Instructions Recorded propranolol 40 mg tablet 20 mg (1/2 x 40 mg) PO BID PRN 01/16/21 Stage fright #10 tabs pharmacy compounding accessory See Rx Instructions .Route 07/20/23 .COMPLEX #90 days ezetimibe 10 mg tablet 10 mg PO DAILY #90 tabs 03/07/24 levothyroxine 88 mcg tablet 88 mcg PO DAILY #90 tabs 05/30/24 ketorolac 0.5 % eye drops 1 drp EYE-BOTH Q8H PRN Irritation 08/26/24 #5 mL Allergies Allergy/AdvReac Type Severity Reaction Status Date / Time simvastatin AdvReac Intermediate Cramping Verified 09/01/24 09:37 of the Muscles Review of Systems Review of Systems ROS Unobtainable: All systems reviewed & are unremarkable except as noted in HPI and below Patient History Medical History GERD (gastroesophageal reflux disease) Sleep apnea Neuropathy History of pneumonia Hyperlipidemia, mixed Osteopenia Vitamin D deficiency Cervical stenosis of spine Lumbar back pain Hypothyroidism Episodic paroxysmal hemicrania, intractable Asthma Multiple sclerosis (10/04/14) Screening for lipid disorders Screening for colorectal cancer Screening for breast cancer Skin cancer screening Surgical History Status post surgery (04/14/11) Social History Smoking Status: Former smoker alcohol intake: current additional social history: [place] mammogram 2 D [place] 03/2022 discussed 3D mammogram -- pt would like to do next year no fhx of breast cancer colonoscopy: before 2017. thinks she is due mom with colon cancer at 80 yo. and at 89 yo 04/2023 Smoking Status: Former smoker alcohol intake frequency: a few times a month Exam Narrative Exam Narrative: GENERAL: 79 year old patient appears stated age. Well-developed patient, in no acute distress. HEAD: Atraumatic. Normocephalic. EYES: PERRL. Extraocular motions intact however no pain using prism glasses, reported discomfort without using prism glasses. Slight injection of bilateral sclera, erythema and minor edema of bilateral upper and lower eyelids. No corneal abrasions on fluorescein exam, negative Day sign bilaterally. Right intra-ocular pressure 15 and left intra-ocular pressure 16 with handheld Jason- Pen. NECK: Trachea midline. Cervical ROM intact. CARDIOVASCULAR: Regular rate and rhythm. RESPIRATORY: ?Nonlabored respirations. ?Speaking in clear, full sentences. ?Clear to auscultation. Breath sounds equal bilaterally. No wheezes, rales, or rhonchi. ? EXTREMITIES: No edema or joint tenderness. NEURO: AOx3. ?Clear speech. ?Moves all 4 extremities appropriately. Steady gait. No pronator drift. Normal vqamze-kini-fbfafc, heel-gilbert, rapid alternating movements. No facial asymmetry. No decreased peripheral vision on visual renee by confrontation. Subjective dimmed/blurred vision of right eye. Initial Vital Signs Initial Vital Signs: Vital Signs Temperature 97.2 F L 09/01/24 09:37 Pulse Rate 70 09/01/24 09:37 Respiratory Rate 14 09/01/24 09:37 Blood Pressure 131/84 09/01/24 09:37 Pulse Oximetry 99 09/01/24 09:37 Oxygen Delivery Method Room Air 09/01/24 09:37 Course Orders Ordered: ED Orders 09/01/24 11:32 MR optic nrv wwo con Stat 09/01/24 13:35 CRP [C-Reactive Protein Quant] Stat Complete Blood Count AUTO DIFF Stat Comprehensive Metabolic Panel Stat Erythrocyte Sedimentation Rate Stat PTT Partial Thromboplastin Chandler Stat Prothrombin Time INR Stat Discontinued Medications Fluorescein Sodium (Fluorescein 1 Mg Strip) 1 mg EYE-BOTH NOW ONE Stop: 09/01/24 12:55 Last Admin: 09/01/24 13:12 Dose: 1 mg Documented By: RB Proparacaine HCl (Proparacaine 0.5% Ophth Celia) 1 drops EYE-BOTH NOW ONE Stop: 09/01/24 12:55 Last Admin: 09/01/24 13:12 Dose: 1 drop Documented By: JULIUS Consultations Consultation #1: Discussed case with esthetics instructor on-call Dr. Connor who sent the patient to the emergency department and who saw her on 08/30/2024. Reports that her IOP these were normal at 15. She suspect the patient's symptoms are related to retrobulbar optic neuritis and recommends ESR, CRP and is agreeable to the brain MRI with and without contrast to make sure there is nothing else causing her symptoms. States that if her symptoms are due to retrobulbar optic neuritis, the patient is likely no longer a candidate for early intervention 3 day intravenous steroids as her symptoms have been going on for a long time now. She recommends consultation with [facility] ophthalmology or Neuro-Ophthalmology if possible after scan results. Time: 15:14 Consultation #2: Discussed case with neurologist on-call with , Dr. Abhilash Gomez. We discussed the patient case and MRI imaging findings. At this time he suspects the patient's right eye visual disturbance is less likely optic neuritis/MS flare given the patient's age, given she has no pain with extraocular movements, and given there was no enhancement of the optic nerve on MRI. He discussed that treatment with steroids versus treatment without steroids has the same outcome at 6 months and the steroids can help to hasten improvement in right eye vision but there is no long-term difference especially given patient age. If the patient would like to proceed with steroids for possible atypical optic neuritis, he recommends 1000 mg of IV Solu-Medrol x3 days or 1250 mg of oral prednisone x3 days given and 50 mg tablets 12.5 with breakfast and 12.5 with lunch. He did discuss that symptoms could also be related to something such as noninflammatory ischemic optic neuropathy but there is no treatment for this with MS. Time: 19:05 Vital Signs Vital signs: Vital Signs - 8 hr 09/01/24 13:53 09/01/24 16:15 09/01/24 18:30 Temperature 97.9 F 97.9 F 97.6 F Pulse Rate 59 L 60 60 Respiratory Rate 18 18 Blood Pressure 124/69 140/70 124/62 Pulse Oximetry 97 97 97 Oxygen Delivery Method Room Air Room Air Room Air MDM - Eye Problem Medical Records Attestation: I reviewed the patient's medical records. Medical records narrative: Ophthalmology note on 08/30/2024. Lab Data 09/01/24 13:35 09/01/24 13:35 Labs: Lab Results 09/01/24 Range/Units 13:35 WBC 6.7 (4.5-11.0) X10^3/uL RBC 4.60 (4.0-5.2) X10^6/uL Hgb 13.2 (12.0-16.0) g/dL Hct 38.0 (36-46) % MCV 82.6 (80-100) fL MCH 28.7 (26-34) PG MCHC 34.8 (30-36) % RDW 13.2 (11.6-14.8) % Plt Count 259 (150-400) X10^3/uL Neut % (Auto) 68.6 (50-75) % Lymph % (Auto) 24.1 L (25-40) % Limestone % (Auto) 5.0 (3-14) % Eos % (Auto) 1.4 L (2-4) % Baso % (Auto) 0.9 (0-2) % Neut # (Auto) 4600 (1626-9392) /uL Lymph # (Auto) 1600 (9710-5594) /uL Limestone # (Auto) 300 (0-900) /uL Eos # (Auto) 100 (0-450) /uL Baso # (Auto) 100 (0-100) /uL ESR 1 (0-20) MM/HR PT 11.5 (9.4-12.5) SECONDS INR 1.0 (0.9-1.3) APTT 62 H (25.1-36.5) SECONDS Sodium 138 (137-145) mmol/L Potassium 4.1 (3.4-5.1) mmol/L Chloride 105 (98-107) mmol/L Carbon Dioxide 26 (22-32) mmol/L BUN 18 H (7-17) mg/dL Creatinine 0.72 (0.52-1.04) mg/dL Estimated GFR > 60 (>60) mL/min BUN/Creatinine Ratio 25.0 H (6-22) Glucose 94 (80-110) mg/dL Calcium 9.2 (8.4-10.2) mg/dL Total Bilirubin 0.6 (0.2-1.3) mg/dL AST 40 H (14-36) IU/L ALT 24 (<35) IU/L Alkaline Phosphatase 60 (38-126) U/L C-Reactive Protein < 0.5 (<1.0) mg/dL Total Protein 6.8 (6.3-8.2) g/dL Albumin 4.4 (3.5-5.0) g/dL Globulin 2.4 (1.7-4.1) g/dL Albumin/Globulin Ratio 1.8 (1.0-2.8) Imaging Data Brain MRI W/WO: Radiologist's Impression: PROCEDURE: MR OPTIC NRV WWO CON INDICATIONS: orbit protocol, hx MS, optic neuritis, vis disturbance TECHNIQUE: Noncontrast sagittal T1 spin echo, axial FLAIR, axial gradient echo, axial diffusion and ADC acquired through the brain. Coronal STIR, thin-slice axial T1 spin echo through the orbits. After the administration of contrast, thin-slice axial and coronal T1 spin echo with fat saturation through the orbits, axial and coronal and sagittal T1 spin echo with fat saturation through the brain. COMPARISON: [facility], MR, MR BRAIN WITH/WITHOUT CONTRAST, 10/15/2020, 10:44. [facility], MR, MR HEAD/BRAIN WO/W CON, 06/30/2023, 12:58. FINDINGS: Image quality: This examination is limited by involuntary motion artifact. Orbits: In this patient with this given history, scrutiny is given to the optic nerves. The optic nerves demonstrate a normal, symmetric appearance, without the thickening or enhancement. No abnormal fluid can be seen along the optic nerve sheaths. Globes are symmetrical. Note is made of bilateral lens replacements. No retrobulbar masses or fat abnormalities. The extra-ocular muscles are normal and symmetric in appearance. Lacrimal glands are normal. Optic chiasm is normal. Periorbital soft tissues appear normal. CSF spaces: Ventricles are normal in size and shape. Basal cisterns are patent. No extra-axial fluid collections. Brain: Multiple foci of T2 weighted hyperintensity can be seen within the periventricular deep white matter. Several peripheral lesions are also seen. These foci do not enhance. No definite progression compared to the prior. No intracranial bleeds or mass effects. No abnormal intracranial enhancement. Castillo-white matter interface is intact. Diffusion weighted images demonstrate no acute ischemic insults. Pituitary gland appears normal, without sellar or suprasellar masses. Brainstem appears normal. Normal intravascular flow voids are present. Skull and face: Calvarial marrow is normal in signal. Sinuses: Sinuses and mastoids are clear. IMPRESSION: Scrutiny is given to the optic nerves and no abnormal lesions or abnormal enhancement can be seen. Stable nonenhancing T2 hyperintense lesions can be seen within the white matter, which are consistent with the given clinical history of multiple sclerosis. No imaging explanation is found for this patient's presenting symptoms. No findings of acute or subacute infarction can be seen. MDM Narrative Medical decision making narrative: 79 year-old female with a past medical history of relapsing-remitting multiple sclerosis/optic neuritis who presents to the emergency department after being sent by her esthetics instructor Dr. Connor for concern of possible optic neuritis/visual disturbance, specifically right eye blurred vision x7 days. About 3 weeks ago patient was sick with flu-like symptoms and reports having bilateral blurred vision and itchy eyes. She saw her PCP Dr. Chaudhry on 08/26/2024 because her flu-like symptoms resolved but she continued to have bilateral eye irritation. He prescribed her ketorolac ophthalmic drops for blepharitis and viral conjunctivitis however this worsened her symptoms so she stopped taking them. Later that evening she developed worsening vision of the right eye specifically and described it as total white vision of the right eye. She saw her eye doctor Dr. 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 Patient reports today her right eye vision is slowly getting better but it is still not normal and she describes the right eye vision as slightly dimmed and blurred compared to the left. Differential diagnosis includes but is not limited to multiple sclerosis flare, optic neuritis, allergic conjunctivitis, blepharitis, intracranial abnormality, etc. Attending physician Dr. Crump was immediately consulted and available for consultation throughout the patient's care. On physical exam patient is in no acute distress, nontoxic appearing, vital signs within normal limits. I reviewed her records from Dr. Connor ophthalmology visit on 08/30/2024. Consult was placed so I could discuss case with Dr. Connor. Patient has no focal neurologic deficits except for reported right eye visual disturbance which has been present for at least 7 days. Physical exam does reveal some minor erythema/injection of the bilateral eyes and some minor erythema edema of the bilateral eye lids similar to the clinical appearance of allergic conjunctivitis or blepharitis. Fluorescein exam revealed no corneal abrasions and intra-ocular pressures were normal at 15 right and 16 left. We will proceed with brain MRI with and without contrast, with orbital protocol, and obtain baseline labs including inflammatory markers. Labs reveal normal WBC count 6.7, hemoglobin 13.2 hematocrit 38.0, platelets normal 259. ESR normal 1 CRP negative less than 0.5. A PTT is elevated at 62 seconds however PT and INR are within normal limits. Appropriate renal function. AST slightly elevated at 40 but this is improved from priors. Brain MRI with and without contrast, orbital protocol reveals the following scrotum he is given the optic nerves and no abnormal lesions or abnormal enhancement can be seen. There stable nonenhancing T2 hyperintense lesions can be seen within the white matter which are consistent with the given clinical history of multiple sclerosis. No imaging explanation found for this patient's presenting symptoms. No findings of acute or subacute infarction can be seen. Case was discussed with neurologist on-call Dr. Gomez with . He discussed that patient's symptoms and imaging findings are not entirely consistent with optic neuritis or multiple sclerosis flare. He discussed that patient could opt to do 3 day steroid treatment or to not do this treatment as six-month result would be the same. I discussed both IV Solu-Medrol and oral prednisone options with the patient and she made the decision to avoid steroids at this time as her symptoms are improving and she would prefer to avoid medications. I did discuss with the patient that she develops any new or worsening symptoms she should return to the emergency department and steroids could be considered at that time. I advised she follow up promptly with her esthetics instructor for further evaluation as the neurologist does believe that this is a vitreous vs retina vs optic nerve problem. In the meantime I did recommend patient try a daily allergy pill and hydrating eyedrops as her eyes are irritated. Patient verbalized understanding of all information and is happy with this plan. She is requesting discharge home to catch her Kinney. She is stable for discharge home, ED return precautions discussed. Discharge Plan Departure Patient Disposition: Home Clinical Impression: Subjective visual disturbance, right eye, Irritation of both eyes, History of multiple sclerosis Instructions: DI for Eye Pain Activity Restrictions/Additional Instructions: Thank you for coming to the emergency department. Today you were evaluated for right eye visual change x1 week and bilateral eye irritation x3 weeks. We performed an MRI of your brain and orbits and obtained lab work. Your brain MRI revealed no acute changes but it did reveal stable lesions consistent with your history of multiple sclerosis. Your lab work was overall reassuring with negative inflammatory markers but 1 of your coagulation markers called APTT was elevated so I do recommend you have repeat lab work with your primary care doctor. I consulted esthetics instructor Dr. Connor and neurologist Dr. Gomez at [facility]. We discussed possibly treating you with steroids for a multiple sclerosis flare but ultimately we made the decision to hold off for now. I would like you to follow up with your esthetics instructor as soon as possible for repeat evaluation. If you develop worsening symptoms I would like you return to emergency department for further evaluation and consideration of steroids at that time. In the meantime, you can start by taking a once daily allergy pill such as Sunni or Claritin and use lubricating eyedrops such as Systane. Please follow up with your primary care doctor within the next 2-3 days for ER follow-up. (If you do not have a PCP you can call [phone]. ?to schedule an appointment with an [facility] Primary Care Provider) IF YOU DEVELOP ANY NEW OR WORSENING SYMPTOMS, RETURN TO THE ER! Please read the attached instructions, they highlight more specific treatments and interventions for you at home. Thank you for letting me participate in your care, Mariely Alonso PA-C Prescriptions: No Action FOLIC ACID/VIT A/VIT B1/VIT (#MULTIVITAMIN) 1 tab PO Qty: 0 omega 7-ebg-ins-fish oil [Fish Oil] 1,000 MG capsule 1,000 mg PO Qty: 0 coenzyme Q10 [Co Q-10] 100 MG capsule Qty: 0 [brewers yeast] Qty: 0 pharmacy compounding accessory Misc See Rx Instructions .ROUTE .COMPLEX Qty: 90 0RF Rx Instructions: Naltrexone Cap-0.5mg +1.5mg starter kit; pharmacy to determine the tolerated maintenance dose ezetimibe 10 mg tablet 10 mg PO DAILY Qty: 90 3RF levothyroxine 88 mcg tablet 88 mcg PO DAILY Qty: 90 2RF propranolol 40 mg tablet 20 mg PO BID PRN (Reason: Stage fright) Qty: 10 1RF Patient Comments: takes very rarely. last was over a year ago. Rx Instructions: TAKE 40 MINUTES BEFORE STAGE EVENT. ketorolac 0.5 % drops 1 drp EYE-BOTH Q8H PRN (Reason: Irritation) Qty: 5 0RF Referrals: Josey Courtney MD [Primary Care Provider] - Stand Alone Forms: Patient Portal/API/Survey
[2024-09-01] MEDS: PROPARACAINE 0.5% OPHTH SOL 1 DROPS EYE-BOTH (13:12)
[2024-09-01] MEDS: FLUORESCEIN 1 MG STRIP EYE-BOTH (13:12)
[2024-09-01 13:51] LABS: Add Manual Diff / Slide Review NO; Basophils Absolute Auto 100 /uL (0-100); Basophils Percent Auto 0.9 % (0-2); Eosinophils Absolute Auto 100 /uL (0-450); Eosinophils Percent Auto 1.4 % (2-4); Hemoglobin 13.2 g/dL (12.0-16.0); Lymphocytes Absolute Auto 1600 /uL (1100-4500); Lymphocytes Percent Auto 24.1 % (25-40); Mean Corpuscular HGB Conc 34.8 % (30-36); Mean Corpuscular Hemoglobin 28.7 PG (26-34); Mean Corpuscular Volume 82.6 fL (80-100); Monocytes Absolute Auto 300 /uL (0-900); Neutrophils Absolute Auto 4600 /uL (1500-7000); Neutrophils Percent Auto 68.6 % (50-75); Platelet Count 259 X10^3/uL (150-400); Red Cell Distribution Width 13.2 % (11.6-14.8); White Blood Cell Count 6.7 X10^3/uL (4.5-11.0)
[2024-09-01 13:53] VITALS: BP 124/69; PULSE 59; TEMP 36.6; O2SAT 97
[2024-09-01 13:58] LABS: Prothrombin Time 11.5 SECONDS (9.4-12.5)
[2024-09-01 14:00] LABS: PTT Partial Thromboplastin Tim 62 SECONDS (25.1-36.5)
[2024-09-01 14:04] LABS: Alanine Aminotransferase 24 IU/L (<35); Albumin 4.4 g/dL (3.5-5.0); Albumin Globulin Ratio 1.8 (1.0-2.8); Alkaline Phosphatase 60 U/L (38-126); Aspartate Aminotransferase 40 IU/L (14-36); Bilirubin Total 0.6 mg/dL (0.2-1.3); Blood Urea Nitrogen 18 mg/dL (7-17); C-Reactive Protein Quant < 0.5 mg/dL (<1.0); Calcium 9.2 mg/dL (8.4-10.2); Carbon Dioxide 26 mmol/L (22-32); Chloride 105 mmol/L (98-107); Estimated Glomerular Filt Rate > 60 mL/min (>60); Globulin 2.4 g/dL (1.7-4.1); Glucose 94 mg/dL (80-110); HEMOLYSIS 38 (0-50); Potassium 4.1 mmol/L (3.4-5.1); Sodium 138 mmol/L (137-145); Total Protein 6.8 g/dL (6.3-8.2)
[2024-09-01 14:20] LABS: Erythrocyte Sedimentation Rate 1 MM/HR (0-20)
[2024-09-01 16:15] VITALS: BP 140/70; PULSE 60; RESP 18; TEMP 36.6; O2SAT 97
[2024-09-01 18:30] VITALS: BP 124/62; PULSE 60; RESP 18; TEMP 36.4; O2SAT 97
== END 2024-09-01 19:27 | disposition home or self-care (01) ==
PROVIDERS: Emergency Provider Physician Assistant; Family Provider Family Medicine; PCP Family Medicine
DX: H57.89 Other specified disorders of eye and adnexa (principal); H53.10 Unspecified subjective visual disturbances; G35 Multiple sclerosis
CPT/HCPCS: 36415; 70543; 70553; 80053; 85025; 85610; 85651; 85730; 86140; 99284; A9579

== ENCOUNTER → 2024-10-13 12:52 | Outpatient (CLI) | payer MEDICARE, OTHER, SELFPAY ==
[2024-10-13 13:57] LABS: Add Manual Diff / Slide Review NO; Basophils Absolute Auto 100 /uL (0-100); Basophils Percent Auto 0.7 % (0-2); Eosinophils Absolute Auto 300 /uL (0-450); Eosinophils Percent Auto 3.9 % (2-4); Hematocrit 38.6 % (36-46); Hemoglobin 13.4 g/dL (12.0-16.0); Lymphocytes Absolute Auto 1900 /uL (1100-4500); Lymphocytes Percent Auto 27.2 % (25-40); Mean Corpuscular HGB Conc 34.7 % (30-36); Mean Corpuscular Hemoglobin 28.7 PG (26-34); Mean Corpuscular Volume 82.7 fL (80-100); Monocytes Absolute Auto 500 /uL (0-900); Monocytes Percent Auto 7.1 % (3-14); Neutrophils Absolute Auto 4200 /uL (1500-7000); Neutrophils Percent Auto 61.1 % (50-75); Platelet Count 248 X10^3/uL (150-400); Red Blood Cell Count 4.66 X10^6/uL (4.0-5.2); Red Cell Distribution Width 13.6 % (11.6-14.8)
[2024-10-13 14:12] LABS: Erythrocyte Sedimentation Rate 5 MM/HR (0-20)
[2024-10-13 14:29] LABS: Alanine Aminotransferase 22 IU/L (<35); Albumin 4.5 g/dL (3.5-5.0); Albumin Globulin Ratio 2.4 (1.0-2.8); Alkaline Phosphatase 77 U/L (38-126); Aspartate Aminotransferase 33 IU/L (14-36); Bilirubin Total 0.4 mg/dL (0.2-1.3); Blood Urea Nitrogen 18 mg/dL (7-17); C-Reactive Protein Quant < 0.5 mg/dL (<1.0); Calcium 9.6 mg/dL (8.4-10.2); Carbon Dioxide 26 mmol/L (22-32); Chloride 103 mmol/L (98-107); Estimated Glomerular Filt Rate > 60 mL/min (>60); Globulin 1.9 g/dL (1.7-4.1); Glucose 85 mg/dL (80-110); HEMOLYSIS < 15 (0-50); Potassium 4.2 mmol/L (3.4-5.1); Sodium 139 mmol/L (137-145); Total Protein 6.4 g/dL (6.3-8.2)
== END ==
LOC: LAB 12:53
PROVIDERS: Family Provider Family Medicine; PCP Family Medicine; Referring Provider Ophthalmology; Visit Provider Ophthalmology
DX: H46.9 Unspecified optic neuritis (principal); G35 Multiple sclerosis
CPT/HCPCS: 36415; 80053; 85025; 85651; 86052; 86140; 86362

== ENCOUNTER → 2025-01-09 12:04 | Outpatient (CLI) | payer MEDICARE, OTHER, SELFPAY ==
[2025-01-09 19:54] LABS: LDL Cholesterol Direct 112 mg/dL (<100)
[2025-01-09 19:58] LABS: Vitamin D 25 Hydroxy (D3) 51.9 ng/mL (30.0-100.0)
[2025-01-09 20:08] LABS: Free T4, Direct Thyroxine 1.58 ng/dL (0.78-2.19)
[2025-01-09 20:20] LABS: Ferritin 35 ng/mL (11-264)
[2025-01-09 20:22] LABS: Thyroid Stimulating Hormone 1.28 uIU/mL (0.47-4.68)
[2025-01-10 22:10] LABS: Triiodothyronine T3 Total 74 ng/dL (71-180)
== END ==
PROVIDERS: Family Provider Family Medicine; PCP Family Medicine; Visit Provider Family Medicine
DX: E03.9 Hypothyroidism, unspecified (principal); E55.9 Vitamin D deficiency, unspecified; E78.2 Mixed hyperlipidemia; M85.80 Other specified disorders of bone density and structure, unspecified site; G35 Multiple sclerosis; R74.01 Elevation of levels of liver transaminase levels; Z86.2 Personal history of diseases of the blood and blood-forming organs and certain disorders involving the immune mechanism
CPT/HCPCS: 82306; 82728; 83721; 84439; 84443; 84480